=== PATIENT | male | born 1995 | race Asian ===

== ENCOUNTER 2017-01-09 17:25 | Emergency (ER) | payer SELFPAY ==
[2017-01-09] MEDS ORDERED: HYDROmorphONE/DILAUDID 1 MG/ML INJ IVP ONE ×2 (17:33→17:36)
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
[2017-01-09] MEDS ORDERED: LORazepam 2 MG/ML INJ IVP ONE (17:42)
[2017-01-09 17:46] VITALS: RESP 16
[2017-01-09 19:58] VITALS: BP 128/86; PULSE 65; TEMP 98.2; O2SAT 94
== END 2017-01-09 19:58 | disposition home or self-care (01) ==
DX: S59.901A Unspecified injury of right elbow, initial encounter (principal); V18.0XXA Pedal cycle driver injured in noncollision transport accident in nontraffic accident, initial encounter; Y92.410 Unspecified street and highway as the place of occurrence of the external cause; Y99.8 Other external cause status; Y93.55 Activity, bike riding
CPT/HCPCS: 96374; A4565; J2060

== ENCOUNTER 2018-05-28 02:25 | Emergency (ER) | payer OTHER ==
[2018-05-28 02:59] VITALS: BP 138/92
--- NOTE | 2018-05-28 03:08 | EDPHY ---
H & P Stated Complaint: possible glue exposure Time Seen by Provider: 05/28/18 02:54 HPI/ROS: Chief Complaint: Heart racing HPI: A 22-year-old male presenting complaining of palpitations and concerned that he may have a reaction to something he touched on a remote control. Patient states that he picked up a remote control at home and it felt like there might be something sticky or glue on remote. He began worrying that he may have been exposed to something toxic. He says his heart started racing. He started breathing fast. He came here immediately for evaluation. Does not have a history of similar episodes. Denies any pain in his hand. He did wash it with soap and water. No sensation that his throat was closing. No fevers or chills. No cough. No difficulty breathing. No nausea or vomiting. No burning sensation in his hand. No pain. He does state that he has been increasingly stressed out over school. He did use marijuana yesterday. Occasionally drinks alcohol but none recently. Denies any other drug use. ROS: 10 systems were reviewed and were negative except those elements noted in the HPI. PMH: Denies Social History: No smoking, occasional alcohol, occasional marijuana Family History: non-contributory Physical Exam: Gen: Awake, Alert, anxious, no respiratory distress HEENT: Nose: no rhinorrhea Eyes: PERRLA, EOMI Mouth: Moist mucosa Neck: Supple, no JVD Chest: nontender, lungs clear to auscultation Heart: S1, S2 normal, no murmur Abd: Soft, non-tender, no guarding Back: no CVA tenderness, no midline tenderness Ext: no edema, non-tender Skin: no rash Neuro: CN II-XII intact, Sensation grossly intact, Strength 5/5 in bilateral upper and lower extremities - Personal History Current Tetanus Diphtheria and Acellular Pertussis (TDAP): No - Medical/Surgical History Hx Asthma: No Hx Chronic Respiratory Disease: No Hx Diabetes: No Hx Cardiac Disease: No Hx Renal Disease: No Hx Cirrhosis: No Hx Alcoholism: No Hx HIV/AIDS: No Hx Splenectomy or Spleen Trauma: No Other PMH: anxiety - Social History Smoking Status: Current every day smoker Constitutional: Initial Vital Signs Temperature (C) 36.6 C 05/28/18 02:55 Heart Rate 89 05/28/18 02:55 Respiratory Rate 18 05/28/18 02:55 Blood Pressure 138/92 H 05/28/18 02:55 O2 Sat (%) 96 05/28/18 02:55 O2 Delivery Mode Room Air Allergies/Adverse Reactions: No Known Allergies Allergy (Unverified 05/28/18 02:55) Home Medications: Medication Instructions Recorded NK [No Known Home Meds] 05/28/18 Medical Decision Making ED Course/Re-evaluation: 22-year-old male presenting with concerns they may have been exposed to a toxic substances, possibly glue. There is no evidence of any acute allergic reaction. Has no angioedema. He is extremely anxious appearing. His hand exam is normal. He has no rash. There is no blistering, no lesions, no erythema, no evidence of a dermatitis. He does not have any toxidrome is at this time. Patient does admit to being anxious. He is not depressed. Denies suicidal homicidal ideation. Denies any hallucinations. Does not have any ideas of grandeur. No evidence of acute psychosis or grave disability. He is here with friends. He has been reassured. Plan will be to discharge with follow-up as an outpatient, return for any concerns. Departure - Departure Disposition: Home, Routine, Self-Care Clinical Impression: Anxiety Condition: Good Instructions: Anxiety (ED) Additional Instructions: Follow up with primary care physician in 3-4 days for any concerns. Referrals: Elenita Mills MD [Medical Doctor] - As per Instructions
== END 2018-05-28 03:18 | disposition home or self-care (01) ==
DX: F41.9 Anxiety disorder, unspecified (principal)